=== PATIENT | male | born 1965 | race Caucasian/White ===

== ENCOUNTER 2021-05-12 06:59 | Day surgery (SDC) | payer BC ==
[2021-05-10 17:08] VITALS: BMI 30.7
[2021-05-12] MEDS ORDERED: MIDAZOLAM HCL 2 MG/2 ML SINGLE DOSE VIAL ONE ×2 (08:59)
[2021-05-12] MEDS ORDERED: BUPIVACAINE HCL/PF 0.25% (2.5MG/ML) 10 ML VIAL ONE (09:28)
[2021-05-12] MEDS ORDERED: PROPOFOL 20 ML ONE ×2 (09:50→10:25)
[2021-05-12] MEDS ORDERED: ceFAZolin SODIUM 1 GM VIAL ONE (10:01)
[2021-05-12] MEDS ORDERED: DEXAMETHASONE SOD PHOSPHATE 4 MG/1 ML VIAL ONE (10:10)
[2021-05-12 12:42] VITALS: TEMP 97.7
[2021-05-12] MEDS ORDERED: ONDANSETRON 4 MG/2 ML VIAL IVPUSH PRN (12:42)
[2021-05-12 13:24] VITALS: PULSE 68
[2021-05-12 14:11] VITALS: BP 156/85
== END 2021-05-12 14:40 | disposition home or self-care (01) ==
LOC: FASU 06:59
PROVIDERS: ATTEND Orthopaedic Surgery
PROC: 0QSP04Z Reposition Left Metatarsal with Internal Fixation Device, Open Approach (ICD-10-PCS; 2021-05-12)
PROC: 0QSP04Z Reposition Left Metatarsal with Internal Fixation Device, Open Approach (ICD-10-PCS; 2021-05-12)
PROC: 0QUP0KZ Supplement Left Metatarsal with Nonautologous Tissue Substitute, Open Approach (ICD-10-PCS; 2021-05-12)
PROC: 0QBP0ZZ Excision of Left Metatarsal, Open Approach (ICD-10-PCS; principal; 2021-05-12 10:09)
DX: S92.352A Displaced fracture of fifth metatarsal bone, left foot, initial encounter for closed fracture (principal); X58.XXXA Exposure to other specified factors, initial encounter; Y93.9 Activity, unspecified; Y92.9 Unspecified place or not applicable
CPT/HCPCS: 11044; 28322; 28485; C1713; 73630-TC-LT; 94760